=== PATIENT | female | born 1940 | race Caucasian/White ===

== ENCOUNTER 2016-06-28 20:26 | Emergency (ER) | payer MEDICARE, BC ==
[~2016-06-28 20:26] MED LIST: ADVAIR 250-501 EACH IH; ADVAIR DIS1 PUFF/DO1 IH; ALENDRONATE SOD70 MG PO; ASPIRIN325 MG PO; BENADRYL-DPS25 MG PO; CALCIUM600 MG PO; CIPRO DPS500 MG PO; COLACE-DPS100 MG PO; COMBIVENT RESPIM4 GM IH; DELTASONE DPS5 MG PO; DUONEB DPS3 ML IH; ENSURE HIGH PR237 ML PO; FLAGYL-DPS500 MG PO; IMBRUVICA140 MG PO; INDOCIN DPS PO; K-PHOS NEUTRAL250 MG PO; MAALOX DPS30 ML PO; MAXZIDE-25 DPS1 TAB PO; MIRALAX DPS17 GM PO; MONTELUKAST SOD10 MG PO; MUCINEX600 MG PO; NORCO 5-325 TA1 EACH PO; NORVASC5 MG PO; PEPCID20 MG PO; PHENERGAN W/COD30 ML PO; PRAVASTATIN SOD40 MG PO; PREPARATION H O57 GM PR; PROVENTIL HFA6.7 GM IH; PROVENTIL2.5 MG/3 M IH; TYLENOL DPS325 MG PO; VIBRAMYCIN-DPS100 M2 PO; VITAMIN D5000 UNI1 PO; ZESTRIL DPS5 MG PO; ZOFRAN4 MG PO
--- NOTE | 2016-06-30 07:39 | ER ---
ADMIT: 06/28/2016 RM/LOC: ER [facility] MR#: [id number] [id number] [place], [place] [id number] RADHA HOLGUIN [address] [place] [address] Emergency Room Report SEX: F AGE: 75 : 1940 DATE: 06/28/2016 HISTORY OF PRESENT ILLNESS: The patient is a 75-year-old female with past medical history of CHF and diverticulitis, came to the ER with chief complaint of left lower quadrant pain for 3 days, which per patient is more aching, is mild in severity, and is very similar in quality and quantity to the previous episodes of diverticulitis which the patient had. The patient also complains of subjective fever at home that she did not measure it. The patient denies any diarrhea or blood in the stool. PHYSICAL EXAMINATION: VITAL SIGNS AND GENERAL: In the ER, the patient had stable vitals, in no distress, sitting in bed. Blood pressure 148/88, pulse of 74, respiratory rate 18, and temperature of 97.8. HEAD AND NECK: Normal exam. CHEST: Clear bilaterally with normal S1 and S2. ABDOMEN: Soft without any tenderness or rebound. The rest of the physical exam is noncontributory. LABORATORY DATA: The patient had WBC of 12.1 with hemoglobin of 11.1 and platelet of 137,000. Sodium was 137 with potassium of 4.3 and bicarb of 27. AST and ALT were 7 and 13 respectively, and lipase was 157. UA was positive for 5 rbc's. ASSESSMENT AND PLAN: Considering the position of the pain, similarity to previous episodes, subjective fever, acute diverticulitis differentials, the patient is stable, nontoxic with no obvious rectal bleeding and has no intractable nausea or vomiting. The patient can be discharged to home with prescription for Flagyl and Levaquin and also medication for pain control p.r.n., follow up with the primary doctor. The plan was with the patient, and she agreed upon it, and she acknowledged and understood it. Hermes Atwood MD/ castro JOB #: [id number] CC: Hermes Atwood MD, Attending Physician Kelechi Fox MD, Family Physician
== END 2016-06-28 21:10 | disposition home or self-care (01) ==
LOC: ER 20:26
DX: K57.92 Diverticulitis of intestine, part unspecified, without perforation or abscess without bleeding (principal); E78.00 Pure hypercholesterolemia, unspecified; I50.9 Heart failure, unspecified; Z88.0 Allergy status to penicillin